=== PATIENT | male | born 1990 | race Asian ===

== ENCOUNTER 2017-10-08 19:34 | Emergency (ER) | payer SELFPAY ==
[~2017-10-08] VITALS: Ht 170.2 cm; Wt 72.0 kg
[2017-10-08 21:40] LABS: HEMATOCRIT 45.3 % (39.2-51.8); HEMOGLOBIN 15.5 g/dL (13.7-18.0)
[2017-10-08 21:52] LABS: BLOOD UREA NITROGEN 15 mg/dL (7-18)
[2017-10-08 21:54] VITALS: BP 124/68
== END 2017-10-08 22:29 | disposition home or self-care (01) ==
LOC: ED 22:23
DX: S06.360A Traumatic hemorrhage of cerebrum, unspecified, without loss of consciousness, initial encounter (principal); R55 Syncope and collapse; W01.198A Fall on same level from slipping, tripping and stumbling with subsequent striking against other object, initial encounter; Y93.89 Activity, other specified; Y92.89 Other specified places as the place of occurrence of the external cause; Y99.8 Other external cause status
CPT/HCPCS: 36415; 70450; 71010; 72125; 80048; 82040; 85025; 85610; 93005; 99285